=== PATIENT | male | born 1990 | race Caucasian/White ===

== ENCOUNTER 2022-10-13 12:59 | Emergency (ER) | payer MEDICAID, OTHER ==
[~2022-10-13] VITALS: Ht 177.8 cm; Wt 86.0 kg
[2022-10-13 13:19] VITALS: O2SAT 99
[2022-10-13] MEDS ORDERED: LORAZEPAM 2MG/ML CPJ IV ONE (13:45)
[2022-10-13] MEDS ORDERED: FOLIC ACID 1 MG, THIAMINE HCL 100 MG, MVI, ADULT NO.1 10 ML in DEXTROSE 5% WATER 1,000 ML IV ONE ×4 (13:45)
[2022-10-13 14:12] LABS: BASOPHILS % 1.1 % (0.0-2.0); EOSINOPHILS % 1.8 % (0.0-5.0); HEMATOCRIT. 38.1 % (42.0-52.0); HEMOGLOBIN. 13.2 g/dL (14.0-18.0); LYMPHOCYTES % 23.5 % (20.0-50.0); MEAN CORPUSCULAR HGB CONC 34.5 g/dL (31.0-37.0); MEAN CORPUSCULAR VOLUME 92.5 fL (80.0-94.0); MEAN PLATELET VOLUME 8.8 fl (7.4-10.4); MONOCYTES % 14.3 % (2.0-8.0); NEUTROPHILS % 59.3 % (40.0-76.0); PLATELET 163 x1000/uL (130-400); RED BLOOD CELL COUNT 4.12 mill/uL (4.7-6.1); RED CELL DISTRIBUTION WIDTH 12.9 % (11.6-14.6); WHITE BLOOD COUNT 4.5 x1000/uL (4.5-11.0)
[2022-10-13 14:27] LABS: CHLORIDE 101 mEq/L (98-107); INDEX HEMOLYSI 1 (1-3); INDEX ICTERIC 1 (1-4); INDEX LIPEMIC 1 (1-3); POTASSIUM 3.5 mEq/L (3.5-5.1); SODIUM 135 mEq/L (136-145)
[2022-10-13 14:35] LABS: ALBUMIN 4.1 g/dL (3.4-5.0); CALCIUM 8.7 mg/dL (8.5-10.1); CARBON DIOXIDE 29 mEq/L (21-32); CREATININE 0.6 mg/dL (0.6-1.3); GLUCOSE 90 mg/dL (70-105); UREA NITROGEN BLOOD 9 mg/dL (7-21)
[2022-10-13 14:36] LABS: ASPARTATE AMINOTRANSFERASE 355 IU/L (15-37); BILIRUBIN TOTAL 0.7 mg/dL (0.1-1.0); ETHANOL BLOOD < 10 mg/dL (-10)
[2022-10-13 14:43] VITALS: BP 132/76; PULSE 75; RESP 18; TEMP 97.7
[2022-10-13 15:14] LABS: ALANINE AMINOTRANSFERASE 336 IU/L (13-61)
== END 2022-10-13 14:47 | disposition home or self-care (01) ==
LOC: ER 12:59
DX: F10.20 Alcohol dependence, uncomplicated (principal); Y90.0 Blood alcohol level of less than 20 mg/100 ml; R56.9 Unspecified convulsions
CPT/HCPCS: 36415; 80053; 80320; 83605; 85025; 99283; J3411; J3490; J7070; G0480

== ENCOUNTER 2022-10-20 03:14 | Emergency (ER) | payer MEDICAID, OTHER ==
[~2022-10-20] VITALS: Ht 182.9 cm; Wt 80.0 kg
[2022-10-20 03:22] VITALS: O2SAT 100
[2022-10-20] MEDS ORDERED: SODIUM CHLORIDE 0.9% 1,000 ML IV ONE (04:30)
[2022-10-20 04:56] LABS: BASOPHILS % 3.4 % (0.0-2.0); HEMATOCRIT. 39.5 % (42.0-52.0); HEMOGLOBIN. 13.6 g/dL (14.0-18.0); LYMPHOCYTES % 25.7 % (20.0-50.0); MEAN CORPUSCULAR HEMOGLOBIN 32.2 pg (28.0-32.0); MEAN CORPUSCULAR HGB CONC 34.3 g/dL (31.0-37.0); MEAN CORPUSCULAR VOLUME 93.7 fL (80.0-94.0); MEAN PLATELET VOLUME 8.4 fl (7.4-10.4); MONOCYTES % 13.3 % (2.0-8.0); NEUTROPHILS % 55.6 % (40.0-76.0); PLATELET 295 x1000/uL (130-400); RED BLOOD CELL COUNT 4.22 mill/uL (4.7-6.1); WHITE BLOOD COUNT 5.8 x1000/uL (4.5-11.0)
[2022-10-20 06:15] LABS: CALCIUM 8.3 mg/dL (8.5-10.1); CHLORIDE 110 mEq/L (98-107); INDEX HEMOLYSI 1 (1-3); INDEX ICTERIC 1 (1-4); INDEX LIPEMIC 1 (1-3); SODIUM 138 mEq/L (136-145)
[2022-10-20 06:18] LABS: CARBON DIOXIDE 26 mEq/L (21-32); CREATININE 0.6 mg/dL (0.6-1.3); GLUCOSE 101 mg/dL (70-105); UREA NITROGEN BLOOD 7 mg/dL (7-21)
[2022-10-20] MEDS ORDERED: IOHEXOL-300 100 ML BOTTLE ONE (06:45)
[2022-10-20] MEDS ORDERED: TOPUD PO (06:54)
[2022-10-20] MEDS ORDERED: KETOROLAC 30MG/ML VIAL IV ONE (07:15)
[2022-10-20 07:25] VITALS: BP 144/92
[2022-10-20 07:29] VITALS: PULSE 86; RESP 18; TEMP 98.2
== END 2022-10-20 07:29 | disposition home or self-care (01) ==
LOC: ER 03:14
DX: R51.9 Headache, unspecified (principal); R07.89 Other chest pain; I10 Essential (primary) hypertension
CPT/HCPCS: 80048; 85025; 36415; 70450; 70486; 71260; 74177; 96361; 96374; 99285; Q9967; J1885; J7030; Z7610 ×2

== ENCOUNTER 2022-11-05 16:17 | Emergency (ER) | payer MEDICAID ==
[~2022-11-05] VITALS: Ht 190.5 cm; Wt 100.0 kg
[~2022-11-05 16:17] MED LIST: TOPUD PO
[2022-11-05 16:26] VITALS: BP 142/67; PULSE 127; RESP 20; TEMP 98.9; O2SAT 97
[2022-11-05 17:38] LABS: BASOPHILS % 1.1 % (0.0-2.0); EOSINOPHILS % 0.4 % (0.0-5.0); HEMATOCRIT. 41.8 % (42.0-52.0); HEMOGLOBIN. 14.1 g/dL (14.0-18.0); LYMPHOCYTES % 18.7 % (20.0-50.0); MEAN CORPUSCULAR HEMOGLOBIN 31.4 pg (28.0-32.0); MEAN CORPUSCULAR HGB CONC 33.8 g/dL (31.0-37.0); MEAN CORPUSCULAR VOLUME 92.7 fL (80.0-94.0); MEAN PLATELET VOLUME 8.6 fl (7.4-10.4); MONOCYTES % 6.1 % (2.0-8.0); NEUTROPHILS % 73.7 % (40.0-76.0); PLATELET 181 x1000/uL (130-400); RED BLOOD CELL COUNT 4.51 mill/uL (4.7-6.1); RED CELL DISTRIBUTION WIDTH 13.1 % (11.6-14.6); WHITE BLOOD COUNT 9.9 x1000/uL (4.5-11.0)
[2022-11-05 17:44] LABS: PROTHROMBIN TIME 10.8 sec (9.6-11.0)
[2022-11-05 17:46] LABS: CHLORIDE 102 mEq/L (98-107); INDEX HEMOLYSI 1 (1-3); INDEX ICTERIC 1 (1-4); INDEX LIPEMIC 1 (1-3); POTASSIUM 3.5 mEq/L (3.5-5.1); SODIUM 139 mEq/L (136-145)
[2022-11-05 17:56] LABS: ALANINE AMINOTRANSFERASE 95 IU/L (13-61); ALBUMIN 3.7 g/dL (3.4-5.0); ASPARTATE AMINOTRANSFERASE 120 IU/L (15-37); BILIRUBIN TOTAL 0.6 mg/dL (0.1-1.0); CALCIUM 8.8 mg/dL (8.5-10.1); CARBON DIOXIDE 25 mEq/L (21-32); CREATININE 0.7 mg/dL (0.6-1.3); GLUCOSE 115 mg/dL (70-105); TROPONIN I HIGH SENSITIVITY 52 ng/L (<78); UREA NITROGEN BLOOD 9 mg/dL (7-21)
[2022-11-05 18:15] LABS: CLARITY URINE TURBID (CLEAR); COLOR URINE DARK YELLOW (YELLOW); GLUCOSE URINE NEGATIVE (NEGATIVE); KETONES URINE TRACE (NEGATIVE); LEUKOCYTE ESTERASE URINE 2+ (NEGATIVE); NITRITE URINE NEGATIVE (NEGATIVE); OCCULT BLOOD URINE 2+ (NEGATIVE); PROTEIN URINE 2+ (NEGATIVE); SPECIFIC GRAVITY URINE 1.024 (1.005-1.030)
[2022-11-05 18:18] LABS: YEAST URINE NONE SEEN
[2022-11-05 18:59] LABS: BACTERIA URINE TRACE; SQUAMOUS EPITHELIAL CELL URINE RARE /lpf (RARE/1+)
[2022-11-05 19:00] LABS: AMORPHOUS SEDIMENT URINE 1+ /lpf
[2022-11-05] MEDS ORDERED: SULF1TAB48 MT (21:04)
== END 2022-11-05 22:24 | disposition home or self-care (01) ==
LOC: ER 16:17
DX: L02.415 Cutaneous abscess of right lower limb (principal); L98.8 Other specified disorders of the skin and subcutaneous tissue; I10 Essential (primary) hypertension
CPT/HCPCS: 36415; 71045; 80053; 81003; 84484; 85025; 93005; 99285

== ENCOUNTER 2023-04-10 23:10 | Emergency (ER) | payer MEDICAID ==
[~2023-04-10] VITALS: Ht 188 cm; Wt 82.0 kg
[~2023-04-10 23:10] MED LIST changes: +SULF1TAB48 MT
[2023-04-10 23:12] VITALS: O2SAT 98
[2023-04-10 23:58] LABS: BASOPHILS % 1.5 % (0.0-2.0); EOSINOPHILS % 0.3 % (0.0-5.0); HEMATOCRIT. 41.3 % (42.0-52.0); HEMOGLOBIN. 13.8 g/dL (14.0-18.0); LYMPHOCYTES % 66.7 % (20.0-50.0); MEAN CORPUSCULAR HEMOGLOBIN 27.8 pg (28.0-32.0); MEAN CORPUSCULAR HGB CONC 33.3 g/dL (31.0-37.0); MEAN CORPUSCULAR VOLUME 83.5 fL (80.0-94.0); MEAN PLATELET VOLUME 7.5 fl (7.4-10.4); MONOCYTES % 5.7 % (2.0-8.0); NEUTROPHILS % 25.8 % (40.0-76.0); PLATELET 244 x1000/uL (130-400); RED BLOOD CELL COUNT 4.95 mill/uL (4.7-6.1); WHITE BLOOD COUNT 4.9 x1000/uL (4.5-11.0)
[2023-04-11 00:20] LABS: ALANINE AMINOTRANSFERASE 56 IU/L (10-49); ALBUMIN 4.3 g/dL (3.2-4.8); ASPARTATE AMINOTRANSFERASE 73 IU/L (<34); BILIRUBIN TOTAL 0.3 mg/dL (0.1-1.0); CALCIUM 8.5 mg/dL (8.7-10.4); CARBON DIOXIDE 26 mEq/L (21-32); CHLORIDE 108 mEq/L (98-107); CREATININE 0.6 mg/dL (0.6-1.3); GLUCOSE 101 mg/dL (70-105); POTASSIUM 3.2 mEq/L (3.5-5.1); PROTEIN TOTAL 8.1 g/dL (6.0-8.3); SODIUM 146 mEq/L (136-145); UREA NITROGEN BLOOD 6 mg/dL (9-23)
[2023-04-11 00:25] LABS: ETHANOL BLOOD 462 mg/dL (<10)
[2023-04-11] MEDS ORDERED: AZIT250T12 MT (05:51)
[2023-04-11] MEDS ORDERED: AMOX1TAB16 MT (05:51)
[2023-04-11] MEDS: AMOXICILLIN/POTASSIUM CLAVULANATE 875/125MG TAB PO ONE (07:11)
[2023-04-11] MEDS: POTASSIUM CHLORIDE 20MEQ TABLET SR PO ONE (07:11)
[2023-04-11] MEDS: AZITHROMYCIN 500 MG TABLET PO ONE (07:11)
[2023-04-11] MEDS: KETOROLAC 15MG/ML VIAL IV ONE (08:57)
[2023-04-11 09:01] VITALS: BP 132/74; PULSE 99; RESP 16; TEMP 98.4
== END 2023-04-11 09:02 | disposition home or self-care (01) ==
LOC: ER 23:10
DX: F10.129 Alcohol abuse with intoxication, unspecified (principal); J18.9 Pneumonia, unspecified organism; I10 Essential (primary) hypertension; Y90.8 Blood alcohol level of 240 mg/100 ml or more
CPT/HCPCS: 80053; 80320; 85025; 36415; 71045; 99284; 96374; J1885; Z7610; G0480

== ENCOUNTER 2023-04-11 11:12 | Emergency (ER) | payer MEDICAID, OTHER ==
[~2023-04-11] VITALS: Ht 190.5 cm; Wt 82.0 kg
[~2023-04-11 11:12] MED LIST changes: +AMOX1TAB16 MT; +AZIT250T12 MT
[2023-04-11 11:17] VITALS: O2SAT 98
[2023-04-11] MEDS: AZITHROMYCIN 250 MG TABLET PO STA (12:13)
[2023-04-11] MEDS: AMOXICILLIN/POTASSIUM CLAVULANATE 875/125MG TAB PO ONE (12:15)
[2023-04-11] MEDS: BUPRENORPHINE 8MG SL TABLET SL ONE (12:15)
[2023-04-11 13:20] VITALS: BP 137/83; PULSE 100; RESP 18; TEMP 98.5
== END 2023-04-11 13:34 | disposition home or self-care (01) ==
LOC: ER 11:12
DX: J18.9 Pneumonia, unspecified organism (principal); F15.10 Other stimulant abuse, uncomplicated; I10 Essential (primary) hypertension
CPT/HCPCS: 99283; Z7610